=== PATIENT | female | born 1980 | race African-American/Black ===

== ENCOUNTER 2018-11-21 15:55 | Emergency (ER) | payer MEDICAID, OTHER ==
[~2018-11-21] VITALS: Ht 167.6 cm; Wt 88.5 kg
--- OUTSIDE RECORDS SUMMARY | 2018-11-21 16:10 | XMS REPORT | Continuity of Care Document ---
Author Author [facility] Organization [facility] Address [facility] [address] [place] [address] Phone Unavailable Support Name Relationship Address Phone Jose Bermudez M.D. Caregiver [address] [place], [place] [address] JOSE DAVID BARRAGAN DO Caregiver [address] [place] [address] Unavailable ARAM RODRIGUEZ Next Of Kin [address] [place] [place], [place] [address] Insurance Providers Payer Name Policy Number Subscriber Name Relationship Self Pay Insurance Krystal Rodriguez 18 Self / Same As Patient Advance Directives Directive Response Recorded Date/Time Do you have an Advanced Directive? No 03/17/12 6:45am Advance Directives No 06/27/15 8:44pm Living Will No 06/27/15 8:44pm Health Care Proxy No 04/27/16 8:10am Power of Easter Bunny for Health Care No 06/27/15 8:44pm Organ, Tissue, or Eye Donor No 06/27/15 8:44pm Do you have a signed organ donor card? No 06/27/15 8:44pm Chief Complaint and Reason for Visit Chief Complaint NAUSEA VOMITING DIARRHEA Reason for Visit Diarrhea Nausea and vomiting Problems Active Problems Medical Problem Onset Date Status Diarrhea Unknown Acute Gastroenteritis Unknown Acute Impetigo Unknown Acute Nausea and vomiting Unknown Acute Pityriasis rosea Unknown Acute Tinea Unknown Acute groin sprain Unknown Acute shoulder dislocation Unknown Acute Medications Current Home Medications Medication Dose Units Route Directions Days/Qty Instructions Start Date Metronidazole 250 Mg 250 Mg Oral Three Times A Day 03/25/12 Acetaminophen/Hydrocodone Bitart 1 Tab 1 Tab Oral Every 4-6 Hours As Needed 03/25/12 Ciprofloxacin Hcl 250 Mg 250 Powd Oral Twice A Day 03/25/12 Diphenhydramine Hcl 25 Mg 50 Mg Oral Four Times Daily 28 03/25/12 Acetaminophen/ Codeine #3 Tab* 1 Tab 1 Tab Oral Every 4-6 Hours 15 01/27 Simethicone 80 Mg 80 Mg Miscellaneous 4 Times A Day 20 03/25/12 Acetaminophen/Hydrocodone Bitart 1 Tab 1 Tab Oral Every 4 Hrs As Needed Pain 15 11/12/12 Acetaminophen/ Codeine #3 Tab* 1 Tab 1 Tab Oral Every 4-6 Hours 15 Acetaminophen/Hydrocodone Bitart 1 Tab 1 Ea Oral Every 6 Hrs As Needed For Pain 15 06/25/13 Naproxen 500 Mg 500 Mg Oral Twice Daily As Needed 08/13/13 Hydroxyzine Hcl 25 Mg 25 Mg Oral Every 6 To 8 Hours As Needed for Itching 30 06/23/15 Mupirocin 22 Gm 22 Gm External Three Times A Day 1 06/23/15 Clotrimazole 15 Gm 15 Gm External Three Times A Day 1 06/23/15 Hydrocortisone 30 Gm 30 Gm Topically Three Times A Day 1 06/23/15 Triamcinolone Acet 15 Gm 15 Gm External Twice A Day 1 Apply to affected area twice daily for itching 06/27/15 Promethazine Hcl 25 Mg 25 Mg Oral Every 4-6 Hours as needed for Nausea/ Vomiting 04/27/16 Past Home Medications Medication Directions Ordered Status Pnv Comb.no58/Iron Bisgly/Fa 1 Each Capsule, 1 Each Oral Daily 03/11/10 Discontinued Magnesium Citrate 296 Ml Solution, 296 Ml Oral Daily As Needed 03/11/10 Discontinued Cimetidine 400 Mg Tablet, 400 Mg Oral Three Times A Day 05/24/11 Discontinued Diphenhydramine Hcl 25 Mg Capsule, 25 Mg Oral Three Times A Day 05/24/11 Discontinued Acetaminophen 500 Mg Tablet, 1000 Mg Oral Every 4-6 Hrs As Needed Pain Discontinued Calcium Carbonate 300 Mg Tab.chew, 300 Mg Oral As Needed 01/04/12 Discontinued Pediatric Multivitamin Comb#30 1 Each Tab.chew, 1 Each Oral Daily 02/02/12 Discontinued Acetaminophen/Hydrocodone Bitart 1 Tab Tablet, 1 Tab Oral Every 6 Hours As Needed 02/05/12 Discontinued Ferrous Sulfate 140 Mg Tablet.er, 325 Mg Oral Twice A Day 02/05/12 Discontinued Meloxicam 7.5 Mg Tablet, 7.5 Mg Oral As Needed 03/10/12 Discontinued Social History Social History Problem Response Recorded Date/Time Smoking Status Current every day smoker 06/27/2015 9:24pm Tobacco Use Cigarettes 04/27/2016 8:28am Alcohol Use none 04/27/2016 8:28am Drug Use none 04/27/2016 8:28am Query Response Start Date Stop Date Smoking Status Current every day smoker Hospital Discharge Instructions No hospital discharge instructions. Plan of Care Discharge Date 04/27/16 9:55am Disposition 01 HOME, ASSISTED,ASSISTED LIVING Condition at Discharge Stable Instructions/Education Provided Acute Diarrhea (ED) Prescriptions See Medication Section Referrals Jose Bermudez M.D. - 2-3 Days Additional Instructions/Education Please drink plenty of water or you can use sport drinks like Gatorade and Powerade. Functional Status Query Response Date Recorded Patient Behavior Cooperative Appropriate April 27, 2016 8:10am Allergies, Adverse Reactions, Alerts Allergen Type Severity Reaction Status Last Updated Hydrocodone Allergy Intermediate hives Active 06/23/15 IVAN BUTTER Allergy Unknown Active 06/23/15 Immunizations Name Given Type Hx Diphtheria, Pertussis, Tetanus Vaccination Up To Date Historical Hx Influenza Vaccination N patient refuses flu shot states " makes me sick" Historical Hx Pneumococcal Vaccination No Historical Hx Tetanus Toxoid Vaccination No Historical Vital Signs Acute Vital Signs Vital Response Date/Time Temperature (Fahrenheit) 97.5 degrees F (97.6 - 99.5) 04/27/2016 9:52am Temperature Source Temporal Artery 04/27/2016 9:52am Pulse Rate (adult) 73 bpm (60 - 90) 04/27/2016 9:52am Respiratory Rate 20 bpm (12 - 24) 04/27/2016 9:52am Blood Pressure 90/55 mm Hg 04/27/2016 9:52am O2 Sat by Pulse Oximetry 98 % (90 - 100) 04/27/2016 9:52am Oxygen Delivery Method 04/27/2016 9:52am Height 5 ft 6 in Weight 171 lb Body Mass Index 27.0 kg/m^2 Results Laboratory Results Test Name Result Units Flags Reference Collection Date/Time Result Date/ Time Comments Urine Color YELLOW YELLOW 04/27/2016 8:30am 04/27/2016 9:00am Urine Appearance CLEAR CLEAR 04/27/2016 8:30am 04/27/2016 9:00am Urine Glucose (UA) NEGATIVE mg/dL NEGATIVE 04/27/2016 8:30am 2015 9:00am Urine Bilirubin NEGATIVE NEGATIVE 04/27/2016 8:30am 04/27/2016 9: 00am Urine Ketones NEGATIVE mg/dL NEGATIVE 04/27/2016 8:30am 04/27/2016 9: 00am Urine Specific [place] >=1.030 H 1.010-1.025 04/27/2016 8:30am 2015 9:00am Urine Occult Blood 1+ (Small) H NEGATIVE 04/27/2016 8:30am 04/27/2016 9:00am URINE CULTURE ORDERED PER MEDICAL STAFF-APPROVED PROTOCOL FOR LAB. Urine pH 6.0 5.0-8.0 04/27/2016 8:30am 04/27/2016 9:00am Urine Protein NEGATIVE mg/dL NEGATIVE 04/27/2016 8:30am 04/27/2016 9: 00am Urine Urobilinogen 0.2 mg/dL E.U./dL 0.2-1.0 04/27/2016 8:30am 2015 9:00am Urine Nitrate NEGATIVE NEGATIVE 04/27/2016 8:30am 04/27/2016 9:00am Urine Leukocyte Esterase NEGATIVE NEGATIVE 04/27/2016 8:30am 2015 9:00am Urine RBC 5-9 /hpf H 0 04/27/2016 8:30am 04/27/2016 9:10am Urine WBC 3-4 /hpf 0-4 04/27/2016 8:30am 04/27/2016 9:10am Urine Squamous Epithelial Cells 3-6 /hpf 0-1 04/27/2016 8:30am 2015 9:10am Urine Bacteria TRACE NEGATIVE 04/27/2016 8:30am 04/27/2016 9:10am Urine Mucus TRACE NEGATIVE 04/27/2016 8:30am 04/27/2016 9:10am Urine HCG, Qualitative NEGATIVE NEG 04/27/2016 8:30am 04/27/2016 9: 01am Procedures No known history of procedures. Encounters Encounter Location Arrival/Admit Date Discharge/Depart Date Attending Provider Departed Emergency Room [place] 04/27/16 8:10am 04/27/16 9:55am JOSE DAVID BARRAGAN DO Recent Diagnosis
--- OUTSIDE RECORDS SUMMARY | 2018-11-21 16:10 | XMS REPORT | Continuity of Care Document ---
Author Organization Unknown Address Unknown Allergies There is no data. Medications There is no data. Problems There is no data. Procedures There is no data. Results There is no data. Encounters ACCT No. Visit Date/Time Discharge Status Pt. Type Provider Facility Loc./Unit Complaint [id number] 10/31/2018 19:35:00 10/31/2018 23:59:59 CLS Outpatient [facility]
--- OUTSIDE RECORDS SUMMARY | 2018-11-21 16:10 | XMS REPORT ---
Author Author BLAKE RUIZ Organization [facility] Address [address] [place] [address] Care Team Providers Care Zinc Plater Name Role Phone BLAKE RUIZ Unavailable PROBLEMS Unknown Problems ALLERGIES No Information ENCOUNTERS Encounter Location Date Diagnosis [facility] [address] [facility] [id number] [address] Feb, [facility] [address] [facility] [id number] [address] Dec, Acute pain of right shoulder M25.511 [facility] [address] [id number] [address] Sep, 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
--- OUTSIDE RECORDS SUMMARY | 2018-11-21 16:10 | XMS REPORT | Continuity of Care Document ---
Author Author [facility] Organization [facility] Address [facility] [address] [place] [address] Phone Unavailable Support Name Relationship Address Phone YOLIS GONZALEZ D.O. Caregiver [address] [place] [address] PRESTON BA MD Caregiver [address] [place] [address] Unavailable Guanaco Mg MD Caregiver [address] [place] [address] NATHALIA PHILLIP MD Caregiver [address] [place] [address] ARAM RODRIGUEZ Next Of Kin [address] [place] [address] Insurance Providers Payer Name Policy Number Subscriber Name Relationship Preferred Community Choice [id number] Krystal Rodriguez 18 Self / Same As Patient Advance Directives Directive Response Recorded Date/Time Do you have an Advanced Directive? No 03/17/12 6:45am Advance Directives No 01/12/17 4:44am Living Will No 01/12/17 4:44am Health Care Proxy No 01/13/17 1:19pm Power of Guitar Technician for Health Care No 01/12/17 4:44am Organ, Tissue, or Eye Donor No 01/12/17 4:44am Do you have a signed organ donor card? No 06/27/15 8:44pm Chief Complaint and Reason for Visit Chief Complaint HIP PAIN Reason for Visit shoulder dislocation Problems Active Problems Medical Problem Onset Date Status Diarrhea Unknown Acute Gastroenteritis Unknown Acute Hip pain, left Unknown Acute Impetigo Unknown Acute Nausea and vomiting Unknown Acute Pityriasis rosea Unknown Acute Tinea Unknown Acute groin sprain Unknown Acute shoulder dislocation Unknown Acute Medications Current Home Medications Medication Dose Units Route Directions Days/Qty Instructions Start Date Amitriptyline Hcl 10 Mg 20 Mg Oral Bedtime 60 01/15/17 Tizanidine Hcl 4 Mg 4 Mg Oral Twice Daily As Needed 60 01/15/17 Past Home Medications Medication Directions Ordered Status [...] 7.5 Mg Oral As Needed 03/10/12 Discontinued Metronidazole 250 Mg Tablet, 250 Mg Oral Three Times A Day 03/25/12 Discontinued Acetaminophen/Hydrocodone Bitart 1 Tab Tablet, 1 Tab Oral Every 4-6 Hours As Needed 03/25/12 Discontinued Ciprofloxacin Hcl 250 Mg Tablet, 250 Powd Oral Twice A Day 03/25/12 Discontinued Diphenhydramine Hcl 25 Mg Capsule, 50 Mg Oral Four Times Daily 03/25/12 Discontinued Acetaminophen/ Codeine #3 Tab* 1 Tab Tablet, 1 Tab Oral Every 4-6 Hours 03/25 Discontinued Simethicone 80 Mg Chew, 80 Mg Miscellaneous 4 Times A Day 03/25/12 Discontinued Acetaminophen/Hydrocodone Bitart 1 Tab Tablet, 1 Tab Oral Every 4 Hrs As Needed Pain 11/12/12 Discontinued Acetaminophen/ Codeine #3 Tab* 1 Tab Tablet, 1 Tab Oral Every 4-6 Hours 11/12 Discontinued Acetaminophen/Hydrocodone Bitart 1 Tab Tablet, 1 Ea Oral Every 6 Hrs As Needed For Pain 06/25/13 Discontinued Naproxen 500 Mg Tablet, 500 Mg Oral Twice Daily As Needed 08/13/13 Discontinued Hydroxyzine Hcl 25 Mg Tablet, 25 Mg Oral Every 6 To 8 Hours As Needed for Itching 06/23/15 Discontinued Mupirocin 22 Gm Oint, 22 Gm External Three Times A Day 06/23/15 Discontinued Clotrimazole 15 Gm Cr, 15 Gm External Three Times A Day 06/23/15 Discontinued Hydrocortisone 30 Gm Tube, 30 Gm Topically Three Times A Day 06/23/15 Discontinued Triamcinolone Acet 15 Gm Cr, 15 Gm External Twice A Day 06/27/15 Discontinued Promethazine Hcl 25 Mg Tablet, 25 Mg Oral Every 4-6 Hours as needed for Nausea /Vomiting 04/27/16 Discontinued Diphenhydramine Hcl 25 Mg Capsule, 50 Mg Oral At Bedtime As Needed 01/12/17 Discontinued Social History Social History Problem Response Recorded Date/Time Smoking Status Current every day smoker 01/14/2017 11:32am Tobacco Use Cigarettes 04/27/2016 8:28am Alcohol Use occasionally 01/12/2017 2:25am Drug Use none 01/12/2017 2:25am Employment Unemployeed 01/12/2017 2:25am Query Response Start Date Stop Date Smoking Status Current every day smoker Hospital Discharge Instructions Discharge Instructions Provider Instructions Make Appointment with: Dr. Garcia [phone] Follow Up In: Other: we got you an appt for 01/21/17 at 3:30 pm Make Appointment with: Dr. Finn [phone] Follow Up In: Other: we got you an appt for 01/26/17 at 9:45 am Smoking Cessation If you are a smoker, the following is recommended: Stop all tobacco use; for help quitting, please call [phone]. Notify Physician If: Fever Greater 100.5 F Other Special Instructions: none Additional Instructions: 1) As we discussed, we are both frustrated because I am not completely sure what has caused your pain or the blood in your urine. 2) Dr. Finn didn't see any blood in the bladder and that is good news. He felt like you may have interstitial cystitis. Therefore I have started you on amitriptyline at 10 mg nightly. After one week, you can increase this to 20 mg nightly. But, you want to keep this medication at as low a dose as possible, because it can have serious side affects at higher doses. 3) Dr. Garcia did see some blood in the vaginal canal, and he thought that the pain may have been a spasm of the ileopsoas muscle. Therefore, I am giving you a script for a muscle relaxer, tizanadine. Again, don't take this every day. Just use it as needed. I am sorry that I don't have very definite answers for you, but I am so relieved that you are doing better. Nursing Instructions Flu Vaccine Received this Visit: No Pneumonia Vaccine Received this Visit: No Education #1 Topic: HIP PAIN, MUSCLE SPASM Methods: Handout Response: Verbalize understanding Recipient: Patient Patient specific education materials provided?: Yes Patient Request Electronic Discharge Instructions: No Patient Received Electronic Discharge Instructions: No Patient Health Summary printed/downloaded for the patient?: Yes Valuables Returned: No Medications Returned: No Left Against Medical Advice: N/A Plan of Care Discharge Date 01/15/17 6:29pm Disposition 01 HOME, SHELTER,ASSISTED LIVING Instructions/Education Provided Muscle Spasm (ED) Hip Pain (ED) Prescriptions See Medication Section Care Plan and Goals See Discharge Instructions Section Functional Status Query Response Date Recorded Foley Coma Scale Total 15 January 14, 2017 9:03pm Patient Behavior Appropriate Cooperative January 14, 2017 9:03pm Allergies, Adverse Reactions, Alerts Allergen Type Severity Reaction Status Last Updated Hydrocodone Allergy Intermediate hives Active 06/23/15 IVAN BUTTER Allergy Unknown Active 06/23/15 Immunizations Name Given Type Hx Diphtheria, Pertussis, Tetanus Vaccination Up To Date Historical Hx Influenza Vaccination N 2007 Historical Hx Pneumococcal Vaccination No Historical Hx Tetanus Toxoid Vaccination No Historical Vital Signs Acute Vital Signs Vital Response Date/Time Temperature (Fahrenheit) 97.7 degrees F (97.6 - 99.5) 01/15/2017 2:24pm Temperature Source Temporal Artery 01/15/2017 2:24pm Pulse Rate (adult) 73 bpm (60 - 90) 01/15/2017 2:24pm Respiratory Rate 16 bpm (12 - 24) 01/15/2017 2:24pm Blood Pressure 117/60 mm Hg 01/15/2017 2:24pm O2 Sat by Pulse Oximetry 98 % (90 - 100) 01/15/2017 2:24pm Oxygen Delivery Method 01/12/2017 4:15am Pain Intensity 6 01/15/2017 2:30pm Pain Location Body Site Modifier 01/15/2017 2:31pm Pain Description 01/15/2017 12:57pm Height 5 ft 6 in Weight 170 lb Body Mass Index 27.0 kg/m^2 Results Laboratory Results Test Name Result Units Flags Reference Collection Date/Time Result Date/ Time Comments White Blood Count 13.2 K/uL H 4.8-10.8 01/15/2017 7:01/15/2017 8: 00am Red Blood Count 3.68 M/uL L 4.20-5.40 01/15/2017 7:01/15/2017 8: 00am Hemoglobin 10.9 gm/dL # L 12.0-16.0 01/15/2017 7:01/15/2017 8:00am Hematocrit 34.6 % L 37.0-47.0 01/15/2017 7:01/15/2017 8:00am Mean Corpuscular Volume 93.9 fL 81.0-99.0 01/15/2017 7:01/15/2017 8:00am Mean Corpuscular Hemoglobin 29.6 pg 27.0-31.0 01/15/2017 7:2016 8:00am Mean Corpuscular Hemoglobin Concent 31.4 g/dL 30.0-37.0 01/15/2017 7: 01/15/2017 8:00am Red Cell Distribution Width 13.0 % 11.5-14.5 01/15/2017 7:2016 8:00am Platelet Count 316 K/uL 130-400 01/15/2017 7:01/15/2017 8:00am Mean Platelet Volume 8.3 fL 7.4-10.4 01/15/2017 7:01/15/2017 8: 00am Neutrophils (%) (Auto) 77.2 % H 42.2-75.2 01/15/2017 7:01/15/2017 8 :00am Lymphocytes (%) (Auto) 17.1 % L 20.5-51.1 01/15/2017 7:01/15/2017 8 :00am Monocytes (%) (Auto) 5.3 % 1.7-9.3 01/15/2017 7:01/15/2017 8:00am Eosinophils (%) (Auto) 0.3 % 0-3 01/15/2017 7:01/15/2017 8:00am Basophils (%) (Auto) 0.0 % 0.0-1.0 01/15/2017 7:01/15/2017 8:00am Neutrophils # (Auto) 10.2 K/uL H 2.0-6.9 01/15/2017 7:01/15/2017 8: 00am Lymphocytes # (Auto) 2.3 K/uL 1.2-3.4 01/15/2017 7:01/15/2017 8: 00am Monocytes # (Auto) 0.7 K/uL H 0.1-0.6 01/15/2017 7:01/15/2017 8: 00am Eosinophils # (Auto) 0.0 K/uL 0.0-0.7 01/15/2017 7:01/15/2017 8: 00am Basophils # (Auto) 0.0 K/uL 0.0-0.2 01/15/2017 7:01/15/2017 8: 00am Erythrocyte Sedimentation Rate 45 mm/hr H 0-20 01/13/2017 2:14pm 2016 3:23pm Random Glucose 105 mg/dL 70-110 01/15/2017 7:01/15/2017 8:26am Blood Urea Nitrogen 8 mg/dL 7-18 01/15/2017 7:01/15/2017 8:26am Creatinine 0.6 mg/dL 0.55-1.02 01/15/2017 7:01/15/2017 8:26am Sodium Level 141 mEq/L 136-145 01/15/2017 7:01/15/2017 8:26am Potassium Level 4.3 mEq/L 3.5-5.0 01/15/2017 7:01/15/2017 8:26am Chloride Level 108 mEq/L H 98-107 01/15/2017 7:01/15/2017 8:26am Carbon Dioxide Level 24.6 mEq/L 21-32 01/15/2017 7:01/15/2017 8: 26am Calcium Level 8.8 mg/dL 8.8-10.5 01/15/2017 7:01/15/2017 8:26am Phosphorus Level 3.6 mg/dL 2.7-4.5 01/13/2017 5:20am 01/13/2017 6:19am Total Protein 6.6 gm/dL 6.4-8.2 01/15/2017 7:10a01/15/2017 8:26am Albumin 2.9 gm/dL L 3.4-5.0 01/15/2017 7:10a01/15/2017 8:26am Total Bilirubin 0.51 mg/dL 0.00-1.00 01/15/2017 7:10a01/15/2017 8: 26am Aspartate Amino Transf (AST/SGOT) 4 U/L L 15-37 01/15/2017 7:10a2016 8:26am Alanine Aminotransferase (ALT/SGPT) 14 U/L 12-78 01/15/2017 7:10a 8:26am Total Alkaline Phosphatase 58 U/L 46-116 01/15/2017 7:10a01/15/2017 8 :26am Urine Random Creatinine 194.3 mg/dL H 30.1-125.0 01/13/2017 10:35am 1:34pm Urine Random Sodium 175 mEq/L >20 01/13/2017 10:35am 01/13/2017 2:01pm Urine Color YELLOW YELLOW 01/14/2017 12:01/14/2017 1:09pm Urine Appearance CLEAR CLEAR 01/14/2017 12:01/14/2017 1:09pm Urine Glucose (UA) NEGATIVE mg/dL NEGATIVE 01/14/2017 12:2016 1:09pm Urine Bilirubin NEGATIVE NEGATIVE 01/14/2017 12:01/14/2017 1: 09pm Urine Ketones NEGATIVE mg/dL NEGATIVE 01/14/2017 12:01/14/2017 1: 09pm Urine Specific [place] 1.010 1.010-1.025 01/14/2017 12:2016 1:09pm Urine Occult Blood 2+ (Moderate) H NEGATIVE 01/14/2017 12:2016 1:09pm URINE CULTURE ORDERED PER MEDICAL STAFF-APPROVED PROTOCOL FOR LAB. Urine pH 6.0 5.0-8.0 01/14/2017 12:01/14/2017 1:09pm Urine Protein NEGATIVE mg/dL NEGATIVE 01/14/2017 12:28pm 01/14/2017 1: 09pm Urine Urobilinogen 0.2 mg/dL E.U./dL 0.2-1.0 01/14/2017 12:28pm 2016 1:09pm Urine Nitrate NEGATIVE NEGATIVE 01/14/2017 12:28pm 01/14/2017 1:09pm Urine Leukocyte Esterase NEGATIVE NEGATIVE 01/14/2017 12:28pm 2016 1:09pm Urine RBC 1-2 /hpf H 0 01/14/2017 12:28pm 01/14/2017 1:25pm Urine WBC 1-2 /hpf 0-4 01/14/2017 12:28pm 01/14/2017 1:25pm Urine Squamous Epithelial Cells 0-1 /hpf 0-1 01/14/2017 12:28pm 2016 1:25pm Urine Bacteria TRACE NEGATIVE 01/14/2017 12:28pm 01/14/2017 1:25pm Urine Mucus TRACE H NEGATIVE 01/14/2017 12:28pm 01/14/2017 1:25pm Urine HCG, Qualitative NEGATIVE NEG 01/13/2017 10:35am 01/13/2017 3: 28pm Glomerular Filtration Rate Calc 144.7 mL/min H 01/15/2017 7:10am 01/15 8:26am C-Reactive Protein, Quantitative 38.4 mg/L H 0.0-4.9 01/13/2017 5:20am 01/15/2017 2:08pm Performed at: [facility] [address] [address], [place], [place] [id number] Rn Ante Partum: KENNEDY Mak MD, Phone: [phone] Microbiology Results Procedure Source Result Collection Date/Time Result Date/Time Urine Culture Urine,Random NO GROWTH AFTER 24 HOURS 01/14/2017 12:28pm 11:32am Procedures Procedure Status Date Provider(s) Cystoscopy with retrograde pyelography Completed 01/14/17 STEW FINN Gynecologic examination under anesthesia Completed 01/14/17 NORBERT GARCIA D.O. Computed tomography of left lower extremity without contrast Completed YOLIS GONZALEZ D.O. Computed tomography of abdomen and pelvis with contrast Completed 01/13/17 PRESTON BA MD Bilateral retrograde pyelography Completed 01/14/17 STEW FINN Encounters Encounter Location Arrival/Admit Date Discharge/Depart Date Attending Provider Discharged Inpatient (obs) [facility] 01/12/17 4:34am 01/15/17 6:29pm PRESTON BA MD Recent Diagnosis shoulder dislocation
--- OUTSIDE RECORDS SUMMARY | 2018-11-21 16:10 | XMS REPORT ---
Author Author MARIUSZ VELEZ [facility] Address [address] [place] [address] Care Team Providers Care Medical Sales Consultant Name Role Phone MARIUSZ VELEZ Unavailable PROBLEMS Unknown Problems ALLERGIES No Information SOCIAL HISTORY Never Assessed PLAN OF CARE VITAL SIGNS MEDICATIONS Unknown Medications RESULTS No Results PROCEDURES No Known procedures IMMUNIZATIONS No Known Immunizations
--- OUTSIDE RECORDS SUMMARY | 2018-11-21 16:10 | XMS REPORT ---
Author Author GUILLE MARTE Organization [facility] Address [address] [place] [address] Care Team Providers Care Oil Prospecting Observer Name Role Phone ROSANNAGUILLE Unavailable PROBLEMS Unknown Problems ALLERGIES No Known Allergies ENCOUNTERS Encounter Location Date Diagnosis 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 The patient is unable to raise her arm up without pain/nki.--[place] Still PLAN OF CARE VITAL SIGNS Height 67 in 2018-01-12 Weight 173 lbs 2018-01-12 Temperature 97.7 degrees Fahrenheit 2018-01-12 Heart Rate 92 bpm 2018-01-12 Respiratory Rate 20 2018-01-12 BMI 27.09 kg/m2 2018-01-12 Blood pressure systolic 122 mmHg 2018-01-12 Blood pressure diastolic 68 mmHg 2018-01-12 MEDICATIONS Medication Instructions Dosage Frequency Start Date End Date Duration Status Naproxen 500 mg Orally every 12 hrs 1 tablet with food or milk as needed 12h Dec, Active PredniSONE 20 mg Orally Once a day 2 tablets 24h Dec, Jan, 05 days Active RESULTS No Results PROCEDURES Procedure Date Ordered Result Body Site TORADOL (IM) 60 MG/2ML (UP TO 15 MG) January 12, 2018 THER/PROPH/DIAG INJ, SC/IM January 12, 2018 INSTRUCTIONS MEDICATIONS ADMINISTERED No Known Medications MEDICAL (GENERAL) HISTORY Type Description Date Surgical History x 5 Surgical History appendectomy Surgical History tubaligation Hospitalization History Lt groin pain
--- NOTE | 2018-11-21 16:46 | ED Lower Extremity ---
General Chief Complaint: Lower Extremity Stated Complaint: R SIDE GROIN PAIN Nursing Triage Note: PATIENT STATES THAT SHE HAS BEEN HAVING SHOOTING PAINS FROM HER RIGHT GROIN DOWN HER RIGHT THIGH FOLLOWED BY NUMBNESS X3 WEEKS. THE PAIN COMES AND GOES. WORSE WHEN LAYING DOWN. SHE STATES SHE WAS IN THE HOSPITAL FOR THE SAME THING ON HER LEFT GROIN X3 DAYS BUT THEY NEVER FOUND OUT WHAT WAS WRONG. Nursing Sepsis Screen: No Definite Risk Source: patient Exam Limitations: no limitations History of Present Illness Date Seen by Provider: November 21, 2018 Time Seen by Provider: 16:40 Initial Comments ER with reports of anterior middle right groin pain. This has been present for 3 weeks. The pain was minimal at first, she took Tylenol for it and it went away , pain has progressively gotten worse. She has some intermittent numbness to this area. She denies any known injury. 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 Similar episode on the left side 2 years ago when she was admitted to the hospital for the same thing, stayed 3 days and never found an answer. She was also employed as a nurse's aide at that time. Onset: just prior to arrival Severity: moderate Pain/Injury Location: right hip Method of Injury: unknown Modifying Factors: Worse With Movement Allergies and Home Medications Home Medications No Active Prescriptions or Reported Meds Patient Home Medication List Home Medication List Reviewed: Yes Review of Systems Constitutional: see HPI; No chills, No fever EENTM: see HPI Respiratory: no symptoms reported Cardiovascular: no symptoms reported Genitourinary: no symptoms reported Musculoskeletal: see HPI Skin: no symptoms reported Psychiatric/Neurological: No Symptoms Reported Past [id number] Hx Patient Social History Alcohol Use: Denies Use Recreational Drug Use: No Smoking Status: Current Everyday Smoker Type Used: Cigarettes 2nd Hand Smoke Exposure: Yes Recent Foreign Travel: No Contact w/Someone Who Travel: No Recent Infectious Disease Expo: No Recent Hopitalizations: No Seasonal Allergies Seasonal Allergies: No Past Medical History Surgeries: Yes Appendectomy, Section, Tubal Ligation Respiratory: No Cardiac: No Neurological: No Genitourinary: No Gastrointestinal: No Musculoskeletal: No Endocrine: No HEENT: No Cancer: No Psychosocial: No Integumentary: No Blood Disorders: No Physical Exam Vital Signs Vital Signs - First Documented 11/21/18 16:15 Temp 98.5 Pulse 98 Resp 18 B/P (MAP) 124/81 (95) Pulse Ox 97 Capillary Refill : Less Than 3 Seconds Height, Weight, BMI Height: 5'6.00" Weight: 195lbs. 0oz. [phone]; BMI Method:Actual General Appearance: WD/WN, no apparent distress HEENT: PERRL/EOMI, normal ENT inspection Respiratory: no respiratory distress, no accessory muscle use Hips: bilateral hip non-tender, bilateral hip normal inspection; left hip normal range of motion; right hip other (tenderness without swelling anteromedial hip confined to an area about 5 x 5 cm. This is worse with hip abduction and internal rotation) Legs: bilateral leg non-tender, bilateral leg normal inspection, bilateral leg normal range of motion Knees: bilateral knee non-tender, bilateral knee normal inspection, bilateral knee normal range of motion Ankles: bilateral ankle non-tender, bilateral ankle normal inspection, bilateral ankle normal range of motion Feet: bilateral foot non-tender, bilateral foot normal inspection, bilateral foot normal range of motion Neurologic/Psychiatric: alert, normal mood/affect, oriented x 3 Skin: normal color, warm/dry Progress/Results/Core Measures Results/Orders Vital Signs/I&O 11/21/18 16:15 Temp 98.5 Pulse 98 Resp 18 B/P (MAP) 124/81 (95) Pulse Ox 97 Blood Pressure Mean: 95 Departure Impression Primary Impression: adductor longus tendinitis of right hip Disposition: 01 HOME, SELF-CARE Condition: Stable Departure-Patient Inst. Decision time for Depature: 16:46 Referrals: NINA GOSS MD NO,LOCAL PHYSICIAN (PCP) Primary Care Physician KAY VELAZQUEZ MD, ROBERT F DO ZAFUTA, MICHAEL P MD Patient Instructions: Tendonitis Add. Discharge Instructions: 1. Medication as directed 2. Follow-up with your doctor next week. Rest. If it hurts, don't do it. Ice pack to the area 30 minutes every 1-2 hours. All discharge instructions reviewed with patient and/or family. Voiced understanding. Scripts Prednisone (Prednisone) 20 Mg Tab 40 MG PO DAILY, #8 TAB 0 Refills Prov: KEVIN LEWIS [employer] WORKER 11/21/18 Hydrocodone Bit/Acetaminophen (Hydrocodone/Acetaminophen 5/325mg Tablet) 1 Tab Tab 1 EACH PO Q4-6HR PRN for PAIN-MODERATE MDD 10 for 3 Days, #14 TAB Prov: KEVIN LEWIS APRN 11/21/18 Work/School Note: Work Release Form Date Seen in the Emergency Department: November 21, 2018 Return to Work: November 28, 2018 Images Extremities-Lower 1 - Tenderness KEVIN LEWIS APRN November 21, 2018 16:46
[2018-11-21] MEDS ORDERED: PRD20T PO (16:48)
[2018-11-21] MEDS ORDERED: ACHD5005 PO (16:48)
[2018-11-21] MEDS ORDERED: HYDROcodone/APAP 5 MG/325 MG (LORTAB) TAB PO ONE (17:00)
[2018-11-21] MEDS ORDERED: IBUPROFEN 800 MG (MOTRIN) TAB PO ONE (17:00)
[2018-11-21] MEDS ORDERED: KETOROLAC 60 MG/2 ML VIAL IM ONE (17:00)
[2018-11-21 17:06] VITALS: BP 124/81
== END 2018-11-21 17:06 | disposition home or self-care (01) ==
LOC: EDUNIT# 15:55 → ER 15:56
DX: M76.01 Gluteal tendinitis, right hip (principal); F17.210 Nicotine dependence, cigarettes, uncomplicated; Z90.49 Acquired absence of other specified parts of digestive tract; Z98.890 Other specified postprocedural states; Z98.51 Tubal ligation status
CPT/HCPCS: 99283